=== PATIENT | male | born 1960 | race Caucasian/White ===

== ENCOUNTER 2017-08-14 14:30 | Outpatient (CLI) | payer OTHER ==
[~2017-08-14] VITALS: Ht 177.8 cm; Wt 81.6 kg
[2017-08-14] MEDS ORDERED: OMEP40CA36 PO (14:38)
[2017-08-14] MEDS ORDERED: TELM1TAB2 PO (14:38)
== END 2017-08-14 15:19 ==
LOC: PREOP 14:30
PROVIDERS: ATTEND Surgery
DX: Z01.818 Encounter for other preprocedural examination (principal); R10.13 Epigastric pain

== ENCOUNTER 2017-08-19 09:18 | Day surgery (SDC) | payer OTHER ==
[~2017-08-19 09:18] MED LIST: OMEP40CA36 PO; TELM1TAB2 PO
--- OUTSIDE RECORDS SUMMARY | 2017-08-19 09:22 | XMS REPORT | Continuity of Care Document ---
Author Author [facility] Organization [facility] Address Unknown Phone Unavailable Allergies Active Description Code Type Severity Reaction Onset Reported/Identified Relationship to Patient Clinical Status Yes No Known Drug Allergies [id number] Drug Allergy Unknown N/ A 10/15/2010 Medications Problems Date Dx Coded Attending Type Code Diagnosis Diagnosed By 08/15/2017 BLAZE VALENCIA DO Ot R10.13 EPIGASTRIC PAIN 08/15/2017 BLAZE VALENCIA DO Ot Z01.818 ENCOUNTER FOR OTHER PREPROCEDURAL EXAMIN Procedures Results Encounters ACCT No. Visit Date/Time Discharge Status Pt. Type Provider Facility Loc./Unit Complaint [id number] 08/14/2017 14:30:00 2016 15:19:00 DIS Outpatient BLAZE VALENCIA DO [facility] PREOP EGD [id number] 07/28/2013 15:15:00 2012 23:59:59 CLS Outpatient [id number] 08/19/2017 14:15:00 PEN Preadmit BLAZE VALENCIA DO [facility] ENDO EPIGASTRIC ABD PAIN
[2017-08-19] MEDS ORDERED: LACTATED RINGERS 1,000 ML IV ONE (09:27)
[2017-08-19] MEDS ORDERED: LACTATED RINGERS 1,000 ML IV STA (09:42)
[2017-08-19 09:44] VITALS: BP 169/102
[2017-08-19] MEDS: HURRICAINE EXT TUBE (BENZOCAINE) XX PRN ×2 (09:45→10:45)
[2017-08-19] MEDS ORDERED: fentaNYL INJECTION 100 MCG/2 ML AMP IVP PRN (09:45)
[2017-08-19] MEDS ORDERED: MIDAZOLAM 2 MG/2 ML (VERSED) VIAL IVP PRN (09:45)
--- NOTE | 2017-08-19 10:44 | Progress Note-Pre Operative ---
Pre-Operative Progress Note H&P Reviewed The H&P was reviewed, patient examined and no changes noted. Date Seen by Provider: Aug 19, 2017 Time Seen by Provider: 10:44 Date H&P Reviewed: Aug 19, 2017 Time H&P Reviewed: 10:44 Pre-Operative Diagnosis: epigstric abdominal pain dark stools BLAZE VALENCIA DO Aug 19, 2017 10:44 am
[2017-08-19] MEDS ORDERED: proPOfol 200 MG/20 ML (DIPRIVAN) VIAL IV ONE (10:45)
--- NOTE | 2017-08-19 11:06 | Progress Note-Post Operative ---
Post-Operative Progess Note Surgeon (s)/Supervisor Filling And Packing (s) Surgeon BLAZE VALENCIA DO Supervisor Filling And Packing: na Pre-Operative Diagnosis epigstric abdominal pain dark stools Post-Operative Diagnosis possible healing ulcer of duodenum, esophagitis possible short segment nieto's Procedure & Operative Findings Date of Procedure 08/19/17 Procedure Performed/Findings egd c biopsies Anesthesia Type per financial advisor Estimated Blood Loss Estimated blood loss (mL): scant Specimens/Packing Specimens Removed duodenum, antrum ge junction BLAZE VALENCIA DO Aug 19, 2017 11:06 am
[2017-08-19] MEDS ORDERED: HURRICAINE EXT TUBE (BENZOCAINE) ONE (11:07)
[2017-08-19] MEDS ORDERED: PANT40TA2 PO (11:07)
[2017-08-19] MEDS ORDERED: SUCR1TAB36 PO (11:07)
--- NOTE | 2017-08-19 11:08 | Discharge Inst-Simple/Standard ---
Discharge Inst-Standard Discharge Medications New, Converted or Re-Newed RX: Transmitted to Pharmacy Patient Instructions/Follow Up Plan of Care/Instructions/FU: 3 weeks Mary Lou Activity as Tolerated: Yes Discharge Diet: Regular Diet BLAZE VALENCIA DO Aug 19, 2017 11:07 am
[2017-08-19 11:10] VITALS: BP 139/93
[2017-08-19 11:40] VITALS: BP 145/88
[2017-08-19 12:56] VITALS: BP 145/88
--- NOTE | 2017-08-19 16:23 | OPERATIVE REPORT ---
DATE OF SERVICE: 08/19/2017 PREOPERATIVE DIAGNOSES: Epigastric abdominal pain, dark stools. POSTOPERATIVE DIAGNOSES: Possible healing ulcer of the duodenum, esophagitis, possible short segment of Dudley's. PROCEDURE: EGD with biopsies. SURGEON: Blaze Barreto DO ANESTHESIA: Per BLANKER OPERATOR. ESTIMATED BLOOD LOSS: Scant. COMPLICATIONS: None. INDICATIONS: The patient is a 57-year-old male with epigastric abdominal pain and having dark stools. He was recommended to have EGD. He declined colonoscopy. He understands all risks and benefits associated and wished to proceed with the procedure. Consent was signed and on the chart. DESCRIPTION OF PROCEDURE: The patient was taken to the endoscopy suite, placed in left lateral recumbent position. Timeout was performed. Scope was inserted in the mouth, down the esophagus, stomach and into the duodenum without difficulty. There was a small area that appeared to be maybe a healing ulcer, which biopsy of this area was obtained. The scope was then slowly retracted back noting no other pathology. Once in the stomach, the stomach was further insufflated. There were no polyps, masses or ulcerations. No erythematous changes present. Scope was then retroflexed noting no other pathology. Scope was returned to its normal position and slowly withdrawn back into the distal esophagus. There were some slight erythematous changes consistent with esophagitis and possible short segment of Dudley's. Biopsy was obtained. Scope was then slowly retracted back noting no other pathology. Scope was slowly retracted until completely removed. The patient tolerated the procedure well without any complications. He was taken to the recovery room in stable condition. RECOMMENDATIONS: The patient will be changed from the omeprazole to Protonix 40 mg daily and also Carafate 1 gram 4 times a day. We will have him follow up in the office in 3 weeks pathology and see how he is doing at that time. If he has any change in condition, he should be reevaluated at that time. The patient will likely need repeat EGD in 1 year for reevaluation. Job ID: [id number] DocumentID: [id number] Dictated Date: 08/19/2017 11:11:54 Second Helper Date: 08/19/2017 16:22:38 Dictated By: BLAZE BARRETO DO
== END 2017-08-19 11:50 | disposition home or self-care (01) ==
LOC: ENDO 09:18
PROVIDERS: ATTEND Surgery
DX: K20.9 Esophagitis, unspecified (principal); I10 Essential (primary) hypertension; G43.909 Migraine, unspecified, not intractable, without status migrainosus; Z79.899 Other long term (current) drug therapy

== ENCOUNTER 2021-03-02 05:35 | Outpatient (RCR) | payer OTHER ==
[~2021-03-02] VITALS: Ht 177.8 cm; Wt 82.1 kg
[~2021-03-02 05:35] MED LIST changes: +OMEP40CA27 PO; -OMEP40CA36 PO; +PANT40TA2 PO; +SUCR1TAB36 PO
== END 2021-03-02 13:45 | disposition home or self-care (01) ==
LOC: PREOP 05:35
PROVIDERS: ATTEND Surgery
DX: Z01.812 Encounter for preprocedural laboratory examination (principal); Z12.11 Encounter for screening for malignant neoplasm of colon; K21.9 Gastro-esophageal reflux disease without esophagitis; Z20.822 Contact with and (suspected) exposure to COVID-19
CPT/HCPCS: 87635

== ENCOUNTER 2021-03-06 09:33 | Day surgery (SDC) | payer OTHER ==
[2021-03-06] VITALS (9 sets, daily range): BP systolic 106–169; BP diastolic 66–102
[~2021-03-06] VITALS: Ht 177 cm; Wt 82.0 kg
[~2021-03-06 09:33] MED LIST changes: -OMEP40CA27 PO; +OMEP40CA6 PO
[2021-03-06] MEDS ORDERED: LACTATED RINGERS 1,000 ML IV STA (09:35)
[2021-03-06] MEDS ORDERED: HURRICAINE EXT TUBE (BENZOCAINE) XX PRN (09:45)
[2021-03-06] MEDS ORDERED: MIDAZOLAM 2 MG/2 ML (VERSED) VIAL ONE (10:03)
[2021-03-06] MEDS ORDERED: PROPOFOL INJECTION 50 ML IV ONE (10:03)
[2021-03-06] MEDS ORDERED: GLYCOPYRROLATE 0.2 MG/ML (ROBINUL) 2 ML VIAL ONE (10:15)
--- NOTE | 2021-03-06 10:53 | Progress Note-Post Operative ---
Post-Operative Progess Note Surgeon (s)/Manager It Security (s) Surgeon BLAZE VALENCIA DO Manager It Security: na Pre-Operative Diagnosis gerd, screening colonoscopy Post-Operative Diagnosis duodenal ulcer, gastritis,normal colon Procedure & Operative Findings Date of Procedure 03/06/21 Procedure Performed/Findings egd c biopsies, colonoscopy Anesthesia Type per nuclear licensing engineer Estimated Blood Loss Estimated blood loss (mL): none Specimens/Packing Specimens Removed duodenum, antrum, ge BLAZE VALENCIA DO Mar 06, 2021 10:53
[2021-03-06] MEDS ORDERED: FAMO-119 PO (10:54)
--- NOTE | 2021-03-06 10:55 | Discharge Inst-Simple/Standard ---
Discharge Inst-Standard Discharge Medications New, Converted or Re-Newed RX: Transmitted to Pharmacy Patient Instructions/Follow Up Plan of Care/Instructions/FU: 2 weeks Mary Lou Activity as Tolerated: Yes Discharge Diet: Regular Diet (gerd diet) BLAZE VALENCIA DO Mar 06, 2021 10:55
--- NOTE | 2021-03-06 14:14 | Anesthesia-General Post-Op ---
MAC Patient Condition Mental Status/LOC: Same as Preop Cardiovascular: Satisfactory Nausea/Vomiting: Absent Respiratory: Satisfactory Pain: Controlled Complications: Absent Post Op Complications Complications None Follow Up Care/Instructions Patient Instructions None needed. Anesthesiology Discharge Order Discharge Order Patient is doing well, no complaints, stable vital signs, no apparent adverse anesthesia problems. No complications reported per nursing. LU HORTON HEAD BOYS GOLF COACH Mar 06, 2021 14:14
--- NOTE | 2021-03-06 14:55 | OPERATIVE REPORT ---
DATE OF SERVICE: 03/06/2021 PREOPERATIVE DIAGNOSES: Gastroesophageal reflux disease, screening colonoscopy. POSTOPERATIVE DIAGNOSES: Duodenal ulcer, gastritis, normal colon. PROCEDURE: EGD with biopsies, colonoscopy. SURGEON: Blaze Barreto DO ANESTHESIA: Per ASSOCIATE CHEMIST. ESTIMATED BLOOD LOSS: None. COMPLICATIONS: None. INDICATIONS: The patient is a 60-year-old male with GERD symptoms and needing screening colonoscopy. He understands risks and benefits of procedure and wished to proceed with procedure. Consent was signed in the chart. DESCRIPTION OF PROCEDURE: The patient was taken to the endoscopy suite, placed in left lateral recumbent position. Timeout was performed. Scope was inserted in mouth, down the esophagus, stomach and into the duodenum without difficulty. Scope was then slowly retracted back. No polyps or masses. A healing duodenal ulcer present. Biopsies were obtained. Some erythematous changes surrounding these areas. Scope was then slowly retracted back to stomach where it was further insufflated. Gastritis appearance in the antrum. Biopsy of the antrum was obtained. Scope was slowly retracted back. No polyps, masses or ulcerations. Scope was retroflexed noting no other pathology. Scope was returned to its normal position, slowly withdrawn to distal esophagus, some changes of erythema present, probable reflux esophagitis. Biopsy was obtained of the GE junction. Scope was then slowly retracted back until completely removed. The patient tolerated procedure well. Digital rectal exam was performed. No palpable polyps, masses or ulcerations. A small nodule in the left part of the prostate. No other palpable polyps, masses or ulcerations. Scope was inserted in the rectum, advanced all the way to cecum with minimal difficulty. The ileocecal valve was intubated. No polyps, masses or ulcerations within the ileum, normal appearance. Scope was retracted back into the colon. Prep was adequate. Scope was then slowly retracted back. No polyps, masses or ulcerations in the cecum, ascending, transverse, descending and sigmoid colon. Once in the rectum, scope was retroflexed noting no other pathology. Scope was returned to its normal position, slowly withdrawn until completely removed. The patient tolerated procedure well without any complications, taken to recovery room in stable condition. RECOMMENDATIONS: The patient will need repeat colonoscopy in 10 years. Any issues before that be seen at that time. Unless family history of colon cancer, which would then be 5 years. The patient with duodenal ulcer, he is on Protonix and Carafate. We will add Pepcid as well. The patient to take as directed. The patient will follow up in office in two weeks to discuss pathology results. We would recommend repeat EGD in 6 to 12 weeks. We also recommended a followup with urology. Job ID: [id number] DocumentID: [id number] Dictated Date: 03/06/2021 10:58:21 Blast Furnace Operator Date: 03/06/2021 14:54:26 Dictated By: BLAZE BARRETO DO
== END 2021-03-06 12:30 | disposition home or self-care (01) ==
LOC: ENDO 09:33
PROVIDERS: ATTEND Surgery
DX: Z12.11 Encounter for screening for malignant neoplasm of colon (principal); K21.00 Gastro-esophageal reflux disease with esophagitis, without bleeding; K29.70 Gastritis, unspecified, without bleeding; K26.9 Duodenal ulcer, unspecified as acute or chronic, without hemorrhage or perforation; H61.899 Other specified disorders of external ear, unspecified ear; I10 Essential (primary) hypertension; Z79.899 Other long term (current) drug therapy; Z80.9 Family history of malignant neoplasm, unspecified
CPT/HCPCS: 88305

== ENCOUNTER 2021-05-04 05:34 | Outpatient (RCR) | payer OTHER ==
[~2021-05-04] VITALS: Ht 177.8 cm; Wt 82.1 kg
[~2021-05-04 05:34] MED LIST changes: +FAMO-119 PO
== END 2021-05-04 13:11 | disposition home or self-care (01) ==
LOC: PREOP 05:34
PROVIDERS: ATTEND Surgery
DX: Z01.812 Encounter for preprocedural laboratory examination (principal); K26.9 Duodenal ulcer, unspecified as acute or chronic, without hemorrhage or perforation; Z20.822 Contact with and (suspected) exposure to COVID-19
CPT/HCPCS: 87635

== ENCOUNTER 2021-05-08 10:23 | Day surgery (SDC) | payer OTHER ==
[~2021-05-08] VITALS: Ht 182.9 cm; Wt 82.1 kg
[2021-05-08] MEDS ORDERED: GLYCOPYRROLATE 0.2 MG/ML (ROBINUL) 2 ML VIAL IJ ONE (10:24)
[2021-05-08] MEDS ORDERED: LACTATED RINGERS 1,000 ML IV STA (10:25)
[2021-05-08 10:50] VITALS: BP 169/100
[2021-05-08] MEDS ORDERED: proPOfol 200 MG/20 ML (DIPRIVAN) VIAL IV ONE (11:37)
[2021-05-08] MEDS: HURRICAINE EXT TUBE (BENZOCAINE) XX PRN ×2 (11:40→12:16)
[2021-05-08 11:55] VITALS: BP 145/88
[2021-05-08 12:00] VITALS: BP 150/96
[2021-05-08 12:05] VITALS: BP 147/90
--- NOTE | 2021-05-08 12:09 | Progress Note-Post Operative ---
Post-Operative Progess Note Surgeon (s)/Corporate Strategy Analyst (s) Surgeon BLAZE VALENCIA DO Corporate Strategy Analyst: na Pre-Operative Diagnosis gerd, hx duodenal ulcer Post-Operative Diagnosis antral erosions Procedure & Operative Findings Date of Procedure 05/08/21 Procedure Performed/Findings egd c biopsy antrum Anesthesia Type per flame annealing machine setter Estimated Blood Loss Estimated blood loss (mL): none Specimens/Packing Specimens Removed antrum BLAZE VALENCIA DO May 08, 2021 12:09
[2021-05-08] MEDS ORDERED: PANT40TA2 PO (12:10)
--- NOTE | 2021-05-08 12:11 | Discharge Inst-Simple/Standard ---
Discharge Inst-Standard Discharge Medications New, Converted or Re-Newed RX: Transmitted to Pharmacy Patient Instructions/Follow Up Plan of Care/Instructions/FU: 3 weeks Mary Lou Activity as Tolerated: Yes Discharge Diet: Regular Diet BLAZE VALENCIA DO May 08, 2021 12:11
[2021-05-08 12:30] VITALS: BP 163/111
[2021-05-08 14:00] VITALS: BP 163/111
--- NOTE | 2021-05-08 15:13 | Anesthesia-General Post-Op ---
MAC Patient Condition Mental Status/LOC: Same as Preop Cardiovascular: Satisfactory Nausea/Vomiting: Absent Respiratory: Satisfactory Pain: Controlled Complications: Absent Post Op Complications Complications None Follow Up Care/Instructions Patient Instructions None needed. Anesthesiology Discharge Order Discharge Order Patient is doing well, no complaints, stable vital signs, no apparent adverse anesthesia problems. No complications reported per nursing. DAX HIGHTOWER CRNA May 08, 2021 15:13
--- NOTE | 2021-05-08 21:12 | OPERATIVE REPORT ---
DATE OF SERVICE: 05/08/2021 PREOPERATIVE DIAGNOSES: Gastroesophageal reflux disease and history of duodenal ulcers. POSTOPERATIVE DIAGNOSIS: Antral erosions. PROCEDURES PERFORMED: EGD with biopsy. SURGEON: Blaze Barreto DO. ANESTHESIA: Per WASHING MACHINE ASSEMBLER. ESTIMATED BLOOD LOSS: None. COMPLICATIONS: None. INDICATIONS FOR PROCEDURE: The patient is a 60-year-old male with history of duodenal ulcer. He also has GERD symptoms. He understands the risks and benefits of the procedure and wished to proceed with procedure. Consent was signed in the chart. DESCRIPTION OF PROCEDURE: The patient was taken to the endoscopy suite and placed in a left lateral recumbent position. Timeout was performed. Scope was inserted in the mouth, down the esophagus, stomach and into the duodenum without difficulty. There were no polyps, masses or ulcerations within the duodenum. Scope was slowly retracted back into the stomach, where it was further insufflated. Small antral erosions were present. Biopsy of the antrum was obtained. Scope was retroflexed noting no other pathology. Scope was returned to its normal position, slowly withdrawn until the distal esophagus had normal appearance. No polyps, masses or ulcerations. Scope was slowly retracted back until completely removed. The patient tolerated the procedure well without any complications and taken to the recovery room in a stable condition. RECOMMENDATIONS: The patient to stop Pepcid and add Protonix 40 mg daily. We will follow up in three weeks to go over the pathology and see how his symptoms are doing. Job ID: [id number] DocumentID: [id number] Dictated Date: 05/08/2021 12:13:01 Customer Sales Representative Date: 05/08/2021 19:41:21 Dictated By: BLAZE BARRETO DO
== END 2021-05-08 14:00 | disposition home or self-care (01) ==
LOC: ENDO 10:23
PROVIDERS: ATTEND Surgery
DX: K25.9 Gastric ulcer, unspecified as acute or chronic, without hemorrhage or perforation (principal); K21.00 Gastro-esophageal reflux disease with esophagitis, without bleeding; K29.50 Unspecified chronic gastritis without bleeding; I10 Essential (primary) hypertension; Z79.899 Other long term (current) drug therapy; Z79.891 Long term (current) use of opiate analgesic; Z80.9 Family history of malignant neoplasm, unspecified

== ENCOUNTER → 2021-08-15 | Outpatient (CLI) | payer OTHER ==
--- NOTE | 2021-08-15 13:23 | Diagnostic Imaging Report ---
EXAMINATION: CT head without contrast. TECHNIQUE: Multiple contiguous axial images were obtained through the brain without the use of intravenous contrast. All CT scans use one or more of the following dose optimizing techniques: automated exposure control, MA and/or KvP adjustment based on patient size and exam type or iterative reconstruction. HISTORY: Daily headaches for the last 3 weeks. COMPARISON: None available. FINDINGS: No large acute territorial ischemia, mass, or hemorrhage. No midline shift or mass effect. Scattered chronic microvascular disease in the periventricular and subcortical white matter. The ventricles, cortical sulci, and basilar cisterns are patent and unremarkable. The orbits are normal. Paranasal sinuses are normal. Mastoid air cells are clear. No soft tissue abnormality is seen. No osseus lesions or fractures are seen. IMPRESSION: 1. No large acute territorial ischemia, mass, or hemorrhage. 2. Scattered chronic microvascular disease. Dictated by: Dictated on workstation # [id number]
== END ==
LOC: RAD 11:45
PROVIDERS: ATTEND Internal Medicine
DX: I67.9 Cerebrovascular disease, unspecified (principal)
CPT/HCPCS: 70450

== ENCOUNTER → 2021-08-27 | Outpatient (CLI) | payer OTHER ==
--- NOTE | 2021-08-27 10:12 | Diagnostic Imaging Report ---
PROCEDURE: MR imaging of the brain without contrast. TECHNIQUE: Multiplanar, multisequence MR imaging of the brain was performed without contrast. INDICATION: Headaches. COMPARISON: 08/15/2021. FINDINGS: No acute ischemia, mass, or hemorrhage. Scattered chronic microvascular disease is seen in the periventricular and subcortical white matter. The ventricles, cortical sulci, and basilar cisterns are symmetric and unremarkable. The sellar and suprasellar regions have a normal appearance. The brainstem and posterior fossa are unremarkable. The paranasal sinuses and mastoid air cells demonstrate normal signal characteristics. The globes and orbits are symmetric and unremarkable. The scalp and calvarium have a normal appearance. IMPRESSION: 1. No acute ischemia, mass, or hemorrhage. 2. Scattered chronic microvascular disease in the periventricular and subcortical white matter. Dictated by: Dictated on workstation # [id number]
== END ==
LOC: RAD 09:30
PROVIDERS: ATTEND Internal Medicine
DX: I67.82 Cerebral ischemia (principal); R90.82 White matter disease, unspecified
CPT/HCPCS: 70551

== ENCOUNTER → 2022-09-13 | Outpatient (CLI) | payer OTHER ==
--- NOTE | 2022-09-13 12:22 | Diagnostic Imaging Report ---
INDICATION: RIGHT TESTICULAR SWELLING TECHNIQUE: Real-time grayscale sonographic imaging and color vascular evaluation of the scrotum. CORRELATION STUDY: None FINDINGS: RIGHT TESTICLE: 4.4 x 2.9 x 3.0 cm. LEFT TESTICLE: 4.4 x 2.0 x 2.9 cm. The testicles are in normal location and demonstrate homogeneous echotexture. There is vascular flow to the testicles. The epididymides appear unremarkable. Moderately large right-sided and smaller left-sided hydrocele. No significant varicocele. IMPRESSION: 1. Bilateral hydroceles, right greater than left. Dictated by: Dictated on workstation # [id number]
== END ==
LOC: RAD 08:34
PROVIDERS: ATTEND Internal Medicine
DX: N43.3 Hydrocele, unspecified (principal); N50.89 Other specified disorders of the male genital organs
CPT/HCPCS: 76870

== ENCOUNTER → 2023-07-15 | Outpatient (CLI) | payer OTHER ==
--- NOTE | 2023-07-15 13:42 | Diagnostic Imaging Report ---
INDICATION: Bilateral hydrocele, two month post repair. TECHNIQUE: Real-time grayscale sonographic imaging and color vascular evaluation of the scrotum. CORRELATION STUDY: 09/13/2022. FINDINGS: RIGHT TESTICLE: 3.7 x 3.5 x 2.3 cm. LEFT TESTICLE: 4.1 x 3.3 x 2.9 cm. The testicles are in normal location and demonstrate homogeneous echotexture. There is vascular flow to the testicles. Multiple small right epididymal head cysts are present. In aggregate, 2.3 x 1.4 x 2.4 cm. No significant hydrocele and/or varicoceles. IMPRESSION: 1. The previous noted bilateral hydroceles have essentially resolved. 2. There are noted what appear to be right epididymal head cysts, not definitively present on prior, could have been previously obscured by the hydroceles or perhaps developed since prior imaging. Possibility that this reflects a very small loculated septated hydrocele adjacent to the epididymides is also a consideration. Dictated by: Dictated on workstation # [id number]
== END ==
LOC: RAD 09:46
PROVIDERS: ATTEND Specialist
DX: N50.3 Cyst of epididymis (principal); N43.2 Other hydrocele
CPT/HCPCS: 76870